=== PATIENT | female | born 1955 | race Caucasian/White ===

== ENCOUNTER 2017-06-09 18:25 | Observation (INO) ==
[2017-06-09] MEDS ORDERED: Aspirin 81 MG TAB.CHEW PO ONE (18:40)
--- NOTE | 2017-06-09 18:48 | Emergency Department Note ---
Disposition Clinical Impression: Chest pain Qualifiers: Chest pain type: unspecified Qualified Code(s): R07.9 - Chest pain, unspecified Disposition: Admitted As Inpatient Condition: Good Referrals: Shanel Wang MD [Primary Care Provider] - Time of Disposition: 18:48 General Adult HPI - General Stated complaint: Chest Pain Time Seen by Provider: 06/09/17 18:40 Source: patient Mode of arrival: ambulatory Limitations: no limitations Nursing Notes Reviewed: Yes Vital Signs Reviewed: Yes - History of Present Illness HPI Narrative: 61-year-old comes in complaining of chest pain for the last 2-3 days. She describes it as a heavy ache across her chest. Patient has no history of cardiac disease. Risk factors include family history. Pt Subjective Complaint: Chest pain Onset (ago): day(s) (4) Location: chest Radiation: non-radiation Pain Severity: moderate Quality: aching Consistency: intermittent Improves with: nothing Worsens with: nothing Associated symptoms: Reports: denies other symptoms Treatments Prior to Arrival: none - Related Data Home Medications Medication Instructions Recorded Confirmed Ranitidine HCl [Zantac 75] 75 mg PO DAILY 07/10/15 07/10/15 Previous Rx's Medication Instructions Recorded Ibuprofen [Motrin] 800 mg PO Q8HR #50 tablet 07/11/15 Clindamycin HCl [Cleocin HCl] 300 mg PO TID #30 cap 10/09/16 HYDROcodone/Acet 5/325 mg [[place] 1 tab PO Q6H PRN #12 tab 10/09/16 5-325 mg] Clindamycin HCl [Cleocin HCl] 300 mg PO TID #30 cap 03/18/17 Allergies Allergy/AdvReac Type Severity Reaction Status Date / Time Penicillins Allergy Hives Verified 10/09/16 12:32 All systems ED: reviewed and negative except as stated. Constitutional: Denies: fever, chills, weakness, weight change Eyes: Denies: eye pain, eye discharge, vision change ENT ED: Denies: ear pain, throat pain, dental pain, hearing loss, epistaxis, congestion, dysphagia Cardiovascular: Reports: chest pain. Denies: palpitations, dyspnea on exertion , edema, syncope Respiratory: Denies: cough, dyspnea, wheezes, hemoptysis, stridor Gastrointestinal: Denies: abdominal pain, nausea, vomiting, diarrhea, constipation, hematemesis, melena, hematochezia Genitourinary: Denies: dysuria, frequency, hematuria, discharge Musculoskeletal: Denies: back pain, neck pain, arthralgia, myalgia Integumentary: Denies: rash, abrasion, lesions Neurological: Denies: headache, weakness, numbness, paresthesias, confusion, abnormal gait, vertigo Psychiatric: Denies: anxiety, depression, suicidal thoughts, homicidal thoughts , auditory hallucinations, visual hallucinations Endocrine: Denies: fatigue Hematological/Lymphatic: Denies: easy bleeding, easy bruising Allergic/Immunologic: Denies: facial swelling, urticaria Past Medical History - Past Medical History Medical history: Reports: other Surgical history: Reports: other Psychiatric history: Reports: no psych history 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: bilateral 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 - Social History Smoking Status: Never smoker Smokeless Tobacco Status: No Alcohol use: Reports: none Drug use: Reports: none Physical Exam - General Limitations: no limitations General appearance: alert, in no apparent distress - Head Head exam: atraumatic, normocephalic, normal inspection - Eye Eye exam: Present: normal appearance, PERRL, EOMI - ENT ENT exam: normal exam - Neck Neck exam: Present: normal inspection, full ROM, trachea midline - Chest Chest inspection: Present: normal inspection, symmetric chest wall rise - Respiratory Respiratory exam: Present: normal lung sounds bilaterally - Cardiovascular Cardiovascular exam: Present: regular rate, normal rhythm, normal heart sounds - Abdominal Exam Abdominal exam: Present: soft, Non-Tender. Absent: tenderness, distention, guarding, rebound, rigidity - Extremities Exam Extremities exam: Present: normal inspection, full ROM. Absent: tenderness, pedal edema - Expanded Lower Extremity Exam Neurovascular/Tendon exam: Absent: motor deficit, sensory deficit, tendon deficit Gait: observed and normal - Back Exam Back exam: Present: normal inspection, full ROM. Absent: tenderness - Neurological Exam Neurological exam: Present: alert, oriented X3 - Psychiatric Psychiatric exam: Present: normal affect, normal mood - Skin Skin exam: Present: warm, dry, intact, normal color Course - Reevaluation(s) Reevaluation #1: 61-year-old female comes in complaining of chest pain across her chest. Initial troponin is negative initial EKG shows no acute change. The patient will be admitted for further evaluation and treatment. Time: 19:56 - Consultations Consultation #1: Discussed with Dr. Serna, admit. Time: 20:09 Vital Signs Temperature 97.8 F 06/09/17 18:44 Pulse Rate 92 06/09/17 18:44 Respiratory Rate 16 06/09/17 18:44 Blood Pressure 151/85 06/09/17 18:44 O2 Sat by Pulse Oximetry 98 06/09/17 18:44 Temperature 97.8 F 06/09/17 18:44 Pulse Rate 90 06/09/17 18:55 Respiratory Rate 18 06/09/17 18:55 Blood Pressure 151/85 06/09/17 18:55 O2 Sat by Pulse Oximetry 99 06/09/17 18:55 Oxygen Delivery Oxygen Delivery Room Air Medical Decision Making - Lab Data Lab results reviewed: Yes I reviewed the patient's lab results. Result diagrams: 06/09/17 18:50 06/09/17 18:50 Lab Results 06/09/17 06/09/17 06/09/17 Range/Units 18:50 18:50 18:50 WBC 8.2 (4.3-11.1) K/mcL RBC 4.87 (3.82-4.97) M/mcL Hgb 14.6 (11.5-15.4) g/dL Hct 43.0 (35.3-44.9) % MCV 88.3 (83.0-100.0) fL MCH 30.0 (28.0-33.3) pg MCHC 34.0 (31.6-35.5) g/dL RDW 13.2 (11.5-14.5) % Plt Count 274 (140-400) K/mcL MPV 9.7 (9.4-12.4) fL Immature Gran % 0.2 (0-4) % Seg Neutrophils % 53.9 % Lymphocytes % 34.1 % Monocytes % 10.3 % Eosinophils % 1.0 % Basophils % 0.5 % Neutrophils # 4.4 (1.6-8.9) K/mcL Lymphocytes # 2.8 (0.6-4.6) K/mcL Monocytes # 0.8 (0.0-1.3) K/mcL Eosinophils # 0.1 (0.0-0.6) K/mcL Basophils # 0.0 (0.0-0.2) K/mcL PT 11.4 (9.4-12.1) Seconds INR 1.1 APTT 30.5 (26.0-36.0) Seconds Sodium (136-145) mEq/L Potassium (3.5-5.1) mEq/L Chloride (98-107) mEq/L Carbon Dioxide (23-29) mEq/L BUN (8-23) mg/dL Creatinine (0.60-1.20) mg/dL Est GFR ( Amer) (> 60) Est GFR (Non-Af Amer) (> 60) BUN/Creatinine Ratio (6-26) Glucose (70-105) mg/dL Calculated Osmolality (280-300) Calcium (8.6-10.3) mg/dL Troponin I (< 0.04) ng/mL B-Natriuretic Peptide 8 (Less than 100) pg/mL 06/09/17 Range/Units 18:50 WBC (4.3-11.1) K/mcL RBC (3.82-4.97) M/mcL Hgb (11.5-15.4) g/dL Hct (35.3-44.9) % MCV (83.0-100.0) fL MCH (28.0-33.3) pg MCHC (31.6-35.5) g/dL RDW (11.5-14.5) % Plt Count (140-400) K/mcL MPV (9.4-12.4) fL Immature Gran % (0-4) % Seg Neutrophils % % Lymphocytes % % Monocytes % % Eosinophils % % Basophils % % Neutrophils # (1.6-8.9) K/mcL Lymphocytes # (0.6-4.6) K/mcL Monocytes # (0.0-1.3) K/mcL Eosinophils # (0.0-0.6) K/mcL Basophils # (0.0-0.2) K/mcL PT (9.4-12.1) Seconds INR APTT (26.0-36.0) Seconds Sodium 139 (136-145) mEq/L Potassium 3.6 (3.5-5.1) mEq/L Chloride 105 (98-107) mEq/L Carbon Dioxide 25 (23-29) mEq/L BUN 16 (8-23) mg/dL Creatinine 0.96 (0.60-1.20) mg/dL Est GFR ( Amer) > 60 (> 60) Est GFR (Non-Af Amer) 59 L (> 60) BUN/Creatinine Ratio 17 (6-26) Glucose 87 (70-105) mg/dL Calculated Osmolality 289 (280-300) Calcium 9.5 (8.6-10.3) mg/dL Troponin I < 0.03 (< 0.04) ng/mL B-Natriuretic Peptide (Less than 100) pg/mL - Radiology Data Radiology results reviewed: Yes I reviewed the patient's radiology results. Chest X-Ray 06/09/17 18:40 IMPRESSION: No acute process. D/ / Neil Chand MD / Neil Chand MD Interpreting Provider: Neil Chand MD - EKG Data EKG #1 EKG attestation: Yes I reviewed and interpreted this EKG. EKG shows normal: sinus rhythm Rate: normal Rhythm: NSR Hooper/QRS: normal Interpretation: no acute changes
[2017-06-09 19:04] LABS: Basophils % 0.5 %; Eosinophils # 0.1 K/mcL (0.0-0.6); Hemoglobin 14.6 g/dL (11.5-15.4); Immature Granulocytes % 0.2 % (0-4); Lymphocytes # 2.8 K/mcL (0.6-4.6); Lymphocytes % 34.1 %; Mean Corpuscular Volume 88.3 fL (83.0-100.0); Mean Platelet Volume 9.7 fL (9.4-12.4); Monocytes # 0.8 K/mcL (0.0-1.3); Monocytes % 10.3 %; Neutrophils # 4.4 K/mcL (1.6-8.9); Platelet Count 274 K/mcL (140-400); Red Blood Count 4.87 M/mcL (3.82-4.97); Red Cell Distribution Width 13.2 % (11.5-14.5); Segmented Neutrophils % 53.9 %
[2017-06-09 19:16] LABS: INR 1.1; Prothrombin Time 11.4 Seconds (9.4-12.1)
[2017-06-09 19:19] LABS: Activated Partial Thrombo Time 30.5 Seconds (26.0-36.0)
[2017-06-09 19:31] LABS: BUN/Creatinine Ratio 17 (6-26); Blood Urea Nitrogen 16 mg/dL (8-23); Calcium 9.5 mg/dL (8.6-10.3); Carbon Dioxide 25 mEq/L (23-29); Chloride 105 mEq/L (98-107); Glucose 87 mg/dL (70-105); Osmolality,Calculated 289 (280-300); Potassium 3.6 mEq/L (3.5-5.1); Sodium 139 mEq/L (136-145); eGFR For African Americans > 60 (> 60); eGFR For Non-African Americans 59 (> 60)
[2017-06-09 19:32] LABS: Troponin I < 0.03 ng/mL (< 0.04)
[2017-06-10] MEDS ORDERED: Naloxone 0.4 MG/ML INJ IVP PRN (00:02)
[2017-06-10] MEDS ORDERED: Nitroglycerin 0.4 MG TAB.SUBL SL PRN (00:05)
--- NOTE | 2017-06-10 00:14 | Internal Med History&Physical ---
Date of Encounter: 06/10/17 Time of Encounter: 00:07 Internal Medicine - H&P: HPI Chief complaint: chest pain Admitted From: Emergency Dept Plans for Post Hospital Care: Home History of present illness: Ms. Quintero is a 61 year old female who does have a background medical history of for GERD. Patient came to emergency room for a left-sided retrosternal chest pain which was localized to begin with but then radiated to the right-sided across the chest. Patient complains that this is more of a heaviness than chest pain. Patient denies any nausea, vomiting, shortness of breath, dizziness and diarrhea. Workup in the emergency room: Patient was evaluated in the emergency room. Basic labs were drawn. EKG was done which was not suggestive of any significant concern. Reason for admission: Chest pain to rule out ACS. Family history: Noncontributory Past Med Surg Social Fam HX - Past Medical History Medical history: GERD, other Psychiatric history: no psych history - Past Surgical History Surgical History: cholecystectomy - Social History Smoking Status: Never smoker Smokeless Tobacco Status: No Alcohol use: none Drug use: none - Family History Mother History Unknown: Yes Father History Unknown: Yes Internal Medicine - H&P: Meds Ibuprofen [Motrin Ib] 400 mg PO DAILY PRN 06/09/17 [History] Ranitidine HCl [Acid Gis Mapping Technician] 150 mg PO BID 06/09/17 [History] 3 Allergy/AdvReac Type Severity Reaction Status Date / Time Penicillins Allergy Hives Verified 06/09/17 20:31 All Systems PM: A 10-system review of systems was performed and is negative for pertinent findings except as documented above in the HPI. - Constitutional Constitutional: no chills, no fever(s), no night sweats - EENT Eyes: no change in vision, no discharge, no pain, no photophobia Ears: no ear discharge, no ear pain, no tinnitus Nose, mouth and throat: no dysphagia, no nasal discharge, no neck pain, no sore throat - Cardiovascular Cardiovascular ROS IM: chest pain, no diaphoresis, no dyspnea, no lightheadedness, no palpitations, no syncope - Respiratory Respiratory: no cough, no dyspnea, no wheezing, no excessive phlegm production - Gastrointestinal Gastrointestinal: no abdominal pain, no diarrhea, no hematemesis, no hematochezia, no melena, no nausea, no vomiting - Genitourinary Genitourinary: no change in urinary stream, no dysuria, no flank pain, no hematuria - Musculoskeletal Musculoskeletal ROS IM: no numbness, no tingling - Integumentary Integumentary IM: no rash, no unusual bruising - Neurological Neurological ROS: no confusion, no convulsions, no focal weakness, no numbness, no tingling, no tremor(s) - Hematologic/Lymphatic Hematologic/Lymphatic: no easy bruising - Constitutional Vitals: Temp Pulse Resp BP Pulse Ox 97.7 F 73 16 109/70 96 06/09/17 23:17 06/09/17 23:17 06/09/17 23:17 06/09/17 23:17 06/09/17 23:17 General appearance: Present: A&O X 3, pleasant, no acute distress, answers questions appropriately - Head Head exam: Present: atraumatic, normocephalic - Eye Eye exam: Present: PERRL, conjuntiva pink, sclera anicteric Pupils: Present: PERRL - Neck Neck exam general surgery: Present: supple, trachea midline. Absent: lymphadenopathy - Respiratory Respiratory exam: Present: CTAB. Absent: accessory muscle use, rales, rhonchi, wheezes - Cardiovascular Cardiovascular exam: Present: RRR, +S1, +S2. Absent: diastolic murmur, gallop, rubs, systolic murmur - GI/Abdominal GI/Abdominal exam: Present: normal bowel sounds, soft, no peritoneal signs. Absent: distended, tenderness - Extremities Exam Extremities exam: Present: warm, radial pulses palpable and symmetrical. Absent : calf tenderness, cyanotic, pedal edema - Neurological Exam Neurological exam: Present: CN II-XII intact, oriented X3, no focal deficits. Absent: pronater drift, facial droop, speech deficit - Skin Skin exam: Present: dry, intact Internal Med - H&P Results - Labs CBC & Chem 7: 06/09/17 18:50 06/09/17 18:50 - Assessment and plan (1) Chest pain Current Visit: Yes Status: Acute Assessment and plan: 61/female Admitted with persistent chest pain. Has a background history of GERD. Plan: Admit as observation. Cardiac diet Cycle troponin Echocardiogram Close monitoring of the cardiac status Aspirin/metoprolol/statin/nitroglycerin. S3 troponins are negative/echocardiogram normal: Please consider stress test Plan of care discussed with the patient and she verbalized understanding Qualifiers: Chest pain type: unspecified Qualified Code(s): R07.9 - Chest pain, unspecified (2) GERD (gastroesophageal reflux disease) Current Visit: No Status: Acute Assessment and plan: Patient does have GERD. Patient might have chest pain likely secondary to GERD. At this point it is extremely difficult to rule out. We will continue to follow rule out myocardial infarction protocol. Once we rule out cardiac issue then maybe she can get workup for GERD as outpatient. Qualifiers: Esophagitis presence: esophagitis presence not specified Qualified Code(s) : K21.9 - Gastro-esophageal reflux disease without esophagitis (3) DVT prophylaxis Current Visit: No Status: Acute Assessment and plan: Heparin Medical decision making: This patient has a moderate to severe risk of worsening in spite of being on appropriate medication due to the underlying complex comorbid conditions. - Time Spent With Patient Total time spent is greater than 50% in coordination of care (as documented) at patient's floor/unit and/or counseling patient:
[2017-06-10 01:32] LABS: Basophils % 0.7 %; Eosinophils # 0.1 K/mcL (0.0-0.6); Eosinophils % 1.5 %; Hematocrit 39.6 % (35.3-44.9); Immature Granulocytes % 0.2 % (0-4); Lymphocytes # 2.3 K/mcL (0.6-4.6); Lymphocytes % 36.9 %; Mean Corpuscular HGB Conc 32.6 g/dL (31.6-35.5); Mean Corpuscular Hemoglobin 28.9 pg (28.0-33.3); Mean Corpuscular Volume 88.8 fL (83.0-100.0); Mean Platelet Volume 9.9 fL (9.4-12.4); Monocytes # 0.7 K/mcL (0.0-1.3); Platelet Count 248 K/mcL (140-400); Red Blood Count 4.46 M/mcL (3.82-4.97); Red Cell Distribution Width 13.3 % (11.5-14.5); Segmented Neutrophils % 48.7 %
[2017-06-10 01:38] LABS: INR 1.1; Prothrombin Time 12.1 Seconds (9.4-12.1)
[2017-06-10 01:39] LABS: Activated Partial Thrombo Time 30.9 Seconds (26.0-36.0)
[2017-06-10 01:49] LABS: Hemoglobin 12.9 g/dL (11.5-15.4)
[2017-06-10 02:01] LABS: Alanine Aminotransferase 17 Units/L (7-52); Albumin 3.9 g/dL (3.5-5.7); Alkaline Phosphatase 73 Units/L (34-104); Aspartate Amino Transferase 14 Units/L (13-39); BUN/Creatinine Ratio 16 (6-26); Bilirubin,Total 0.5 mg/dL (0.3-1.0); Blood Urea Nitrogen 17 mg/dL (8-23); Calcium 9.3 mg/dL (8.6-10.3); Carbon Dioxide 28 mEq/L (23-29); Chloride 107 mEq/L (98-107); Chol/HDL Ratio 4.7 (0-4.9); Cholesterol 226 mg/dL (< 200); Glucose 110 mg/dL (70-105); HDL Cholesterol 48 mg/dL (40-59); LDL Cholesterol,Calculated 144 mg/dL (0-99); Magnesium 2.1 mg/dL (1.6-2.6); Osmolality,Calculated 290 (280-300); Phosphorous 2.9 mg/dL (2.7-4.5); Potassium 3.9 mEq/L (3.5-5.1); Sodium 139 mEq/L (136-145); Total Protein 5.9 g/dL (6.4-8.9); Triglycerides 169 mg/dL (< 150); eGFR For African Americans > 60 (> 60); eGFR For Non-African Americans 53 (> 60)
[2017-06-10] MEDS: *HR* Heparin 5,000 UNIT/ML VIAL SQ SCH ×3 (06:07→20:20)
[2017-06-10] MEDS ORDERED: Famotidine 20 MG TABLET PO SCH (09:00)
[2017-06-10] MEDS: Aspirin Enteric Coated 81 MG Tablet PO SCH (10:49)
--- NOTE | 2017-06-10 15:13 | Internal Med Progress Note ---
Date of Encounter: 06/10/17 Time of Encounter: 15:09 - Assessment and plan (1) Chest pain Current Visit: Yes Status: Acute Assessment and plan: - Presented with atypical chest pain, CV risk factors including family history of CAD and hypertension. - EKG no acute changes, serial troponin was negative. Echocardiogram revealed EF 60-65%, normal systolic function, mild LV diastolic dysfunction, mild tricuspid regurgitation, and mild pulmonary hypertension. - The likelihood of ACS is low, however patient was concerned that several family member had ACS in the past, will order stress test in the morning. - Continue telemetry. Qualifiers: Chest pain type: unspecified Qualified Code(s): R07.9 - Chest pain, unspecified (2) GERD (gastroesophageal reflux disease) Current Visit: No Status: Chronic Qualifiers: Esophagitis presence: esophagitis presence not specified Qualified Code(s) : K21.9 - Gastro-esophageal reflux disease without esophagitis (3) DVT prophylaxis Current Visit: No Status: Acute Assessment and plan: - Continue home medication. - Time Spent With Patient Total time spent is greater than 50% in coordination of care (as documented) at patient's floor/unit and/or counseling patient: 25 - 35 minutes - Subjective Interval history: Patient seen and examined in the room. She denies chest pain, shortness breath , or palpitation. - Constitutional Vitals: Temp Pulse Resp BP Pulse Ox 97.7 F 72 17 107/75 93 06/10/17 11:14 06/10/17 11:14 06/10/17 11:14 06/10/17 11:14 06/10/17 11:14 General appearance: Present: A&O X 3, pleasant, no acute distress, answers questions appropriately Exam: PHYSICAL EXAMINATION: GENERAL APPEARANCE: The patient is alert, oriented and in no acute distress. HEENT: Head is normocephalic. The sinuses are nontender. Pupils are equal and reactive. The nares are patent. Oropharynx clear without lesions. NECK: Supple without lymphadenopathy. HEART: Regular rate and rhythm. LUNGS: No crackles or wheezes are heard. ABDOMEN: Soft, nontender, nondistended with good bowel sounds heard. Inguinal area is normal. EXTREMITIES: Without cyanosis, clubbing or edema. NEUROLOGICAL: Gross nonfocal. SKIN: Warm and dry without any rash. Internal Medicine: Result - Labs CBC & Chem 7: 06/10/17 01:06 06/10/17 01:06 Labs: Short CBC 06/10/17 Range/Units 01:06 WBC 6.2 (4.3-11.1) K/mcL Hgb 12.9 D (11.5-15.4) g/dL Hct 39.6 (35.3-44.9) % Plt Count 248 (140-400) K/mcL Neutrophils # 3.0 (1.6-8.9) K/mcL BMP 06/10/17 01:06 Sodium 139 Potassium 3.9 Chloride 107 Carbon Dioxide 28 BUN 17 Creatinine 1.05 Glucose 110 H Calcium 9.3 Cardiac Enzymes 06/10/17 06/10/17 06/10/17 Range/Units 01:06 06:01 12:01 Troponin I < 0.03 < 0.03 < 0.03 (< 0.04) ng/mL Liver Function 06/10/17 Range/Units 01:06 Total Bilirubin 0.5 (0.3-1.0) mg/dL AST 14 (13-39) Units/L ALT 17 (7-52) Units/L Alkaline Phosphatase 73 (34-104) Units/L Albumin 3.9 (3.5-5.7) g/dL - ABG Interpretation ABG results: PT/INR, D-dimer PT 12.1 Seconds (9.4-12.1) 06/10/17 01:06 - Impressions Impressions Echocardiogram 06/10/17 00:06 Impressions: LVEF 60-65%. Normal LV chamber size, wall thickness and function. Mild left ventricular diastolic dysfunction. Normal right ventricular structure and function. Mild tricuspid regurgitation. Mild pulmonary hypertension. Left Ventricular Wall Motion: Rest Echo Findings All wall segments showed normal motion. Findings: Study Quality * Technically adequate exam. ECG Findings * Sinus rhythm with BBB. Left Ventricle * LVEF 60-65%. * Normal LV chamber size, wall thickness and function. * Mild left ventricular diastolic dysfunction. * Atypical septal motion consistent with bundle branch block. Right Ventricle * Normal right ventricular structure and function. Left Atrium * Mildly dilated left atrium. Right Atrium * Mildly dilated right atrium. Interatrial Septum * Interatrial septum not well evaluated. Aortic Valve * Trileaflet aortic valve with normal function. * No aortic regurgitation. * No aortic stenosis. Mitral Valve * Normal mitral valve structure and function. * No mitral stenosis. * No mitral regurgitation. Tricuspid Valve * Normal tricuspid valve structure. * Mild tricuspid regurgitation. * Mild pulmonary hypertension. Pulmonic Valve * Normal pulmonic valve structure and function. * No pulmonic regurgitation. Aorta * Normally sized aortic root. Pericardium * The pericardium appears normal. IVC * Normal IVC dimensions and inspiratory collapse. Pulmonary Artery * Normal visualized portions of the main pulmonary artery. Consult Discharge Plan - Plan Referrals: Shanel Wang MD [Primary Care Provider] -
[2017-06-10] MEDS ORDERED: Acetaminophen 325 MG TABLET PO PRN (22:34)
[2017-06-11] MEDS: *HR* Heparin 5,000 UNIT/ML VIAL SQ SCH (05:18)
[2017-06-11] MEDS ORDERED: Regadenoson 0.4 MG/5 ML SYRINGE IVP ONE (07:05)
[2017-06-11] MEDS ORDERED: Famotidine 20 MG TABLET PO SCH (09:00)
[2017-06-11] MEDS: Aspirin Enteric Coated 81 MG Tablet PO SCH (09:00)
[2017-06-11 11:43] VITALS: BP 89/60
--- NOTE | 2017-06-11 13:29 | Discharge Summary ---
- NOTES TO OUTPATIENT PROVIDER Notes to Outpatient Provider: Patient had a negative stress test and has a past history of GERD. Orders not resulted at time of discharge: Pending orders 06/10/17 12:57 NM lacy perf SPECT multi [NM] Routine Date of Encounter: 06/11/17 Time of Encounter: 13:26 - Discharge Diagnosis (1) GERD (gastroesophageal reflux disease) Priority: Primary Status: Chronic Qualifiers: Esophagitis presence: esophagitis presence not specified Qualified Code(s) : K21.9 - Gastro-esophageal reflux disease without esophagitis (2) Chest pain Priority: Primary Status: Acute Qualifiers: Chest pain type: unspecified Qualified Code(s): R07.9 - Chest pain, unspecified Hospital course: Ms. Quintero is a 61 year old female who has a history of GERD. She presented to emergency room with left-sided retrosternal chest pain which was localized and then radiated into her right side across the chest. She reported it as a heaviness more than the pain. She denied any accompanying mean nausea vomiting shortness of breath dizziness diarrhea or sweats. EKG showed no ST changes. Cardiac enzymes were negative 3 sets. She was admitted and had a stress test with impression of low level exercise pharmacological stress ECG is negative for ischemia at level of heart rate achieved. Gated EF greater than 70%. Perfusion imaging was negative for ischemia or infarct. Patient was discharged and instructed to follow-up with her primary care physician. Stated some of this could be coming from her GERD. Defer to PCP for evaluation. Discharge discussed with: patient, nurse - Time Spent with Patient Total time spent providing and/or coordinating discharge services: Less than 30 minutes - Discharge Medications Home Medications: Ibuprofen [Motrin Ib] 400 mg PO DAILY PRN 06/09/17 [History] Ranitidine HCl [Acid Grocery Manager] 150 mg PO BID 06/09/17 [History] Allergies/Adverse Reactions: 3 Allergy/AdvReac Type Severity Reaction Status Date / Time Penicillins Allergy Hives Verified 06/09/17 20:31 Date of admission: 06/09/17 20:30 Primary care physician: Shanel Wang MD Discharging clinician: Katty Martinez Anticipated date of discharge: 06/11/17 - Constitutional Vitals: Temp Pulse Resp BP Pulse Ox 98 F 79 16 89/60 95 06/11/17 11:42 06/11/17 11:42 06/11/17 11:42 06/11/17 11:42 06/11/17 11:42 General appearance: Present: cooperative, A&O X 3, pleasant, no acute distress, answers questions appropriately - Head Head exam: Present: atraumatic, normocephalic - Eye Eye exam: Present: PERRL, conjuntiva pink, sclera anicteric Pupils: Present: PERRL - Neck Neck exam general surgery: Present: supple, trachea midline. Absent: lymphadenopathy - Respiratory Respiratory exam: Present: CTAB. Absent: accessory muscle use, rales, rhonchi, wheezes - Cardiovascular Cardiovascular exam: Present: RRR, +S1, +S2. Absent: diastolic murmur, gallop, rubs, systolic murmur - GI/Abdominal GI/Abdominal exam: Present: normal bowel sounds, soft, no peritoneal signs. Absent: distended, tenderness - Extremities Exam Extremities exam: Present: warm, radial pulses palpable and symmetrical. Absent : calf tenderness, cyanotic, pedal edema - Neurological Exam Neurological exam: Present: CN II-XII intact, oriented X3, no focal deficits. Absent: pronater drift, facial droop, speech deficit - Skin Skin exam: Present: dry, intact, normal color, warm - Patient Status Disposition: Home, Self-Care Condition: Good Functional capacity at discharge: independent ambulation Overall status at discharge: patient is progressing back to baseline - Discharge Instructions Instructions: Chest Pain (DC) Follow Up With: Shanel Wang MD [Primary Care Provider] - 06/19/17 10:30 am Additional Instructions: Follow-up appointments: If there is not an appointment listed below, please call your physician and schedule a follow-up appointment. If you have congestive heart failure and your symptoms return, make an appointment with your physician. Medication List: Carry an up to date list of medications you are taking at all time. We have given you an updated medication list including any new medications that you have been prescribed. Please provide that list to your primary provider Symptoms: If your condition changes or you experience any of the following symptoms, notify your physician immediately: Unusual or worsening pain, fever, persistent nausea and vomiting, bleeding, increase in swelling (especially in your legs), sudden weight gain, extreme dizziness, chest pain, increased drainage or redness from a wound or incision. Go to the emergency department if you experience a problem with breathing. Weights: If you have a history of swelling or shortness of breath, weigh yourself daily and notify your physician if you have a weight gain of two or more pounds in one day or 5 or more pounds in a week. If you experience any of the warning signs for stroke: Sudden numbness or weakness of the face, arm or leg; especially on one side of the body, sudden confusion, trouble speaking or understanding, sudden trouble seeing in one or both eyes, sudden trouble walking, dizziness, loss of balance or coordination, sudden sever headache with no cause; Call 911 or go to the emergency room. Stroke is a medical emergency. Some risk factors for stroke: Age, cigarette smoking, diabetes, excessive alcohol consumption, family history , high blood pressure, overweight, physical inactivity, prior stroke, heart attack, diagnosis of carotid artery stenosis or other artery disease. If you smoke, STOP: Smoking or tobacco use significantly increases your risk of heart and lung disease. Your chance of disease greatly increases if you continue to smoke. For more information, call the [place] tobacco quit line for smoking cessation QUIT-NOW ( ) - Diet and Activity Activity: resume usual activities as tolerated Diet: advance to your usual diet
--- NOTE | 2017-06-13 14:43 | Electrocardiograph Report ---
[address] [place] [address] Test Date: 2017-06-09 Pat Name: Rebeca Quintero Department: [id number] Room: 3B45 Gender: F Senior [employer]: MSC : [id number] Requested By: Margarito Avila Order Number: [id number] Reading MD: Gaurav Garza Measurements Intervals [place] Rate: 87 P: 42 OR: 108 QRS: 44 QRSD: 130 T: 22 QT: 382 QTc: 427 Interpretive Statements SINUS RHYTHM WITH SHORT OR INTERVAL RIGHT BUNDLE BRANCH BLOCK Electronically Signed On 06-13-2017 14:41:14 EDT by Gaurav Garza
== END 2017-06-11 14:45 | disposition home or self-care (01) ==
LOC: 3BNU 18:25 → EMEROO 18:25 → 3BNU 21:06
PROVIDERS: ADMIT Internal Medicine; ATTEND Registered Nurse